=== PATIENT | female | born 1950 | race Caucasian/White ===

== ENCOUNTER 2021-03-27 09:08 | Day surgery (SDC) | payer MEDICARE ==
[2021-03-26 08:55] VITALS: BMI 26.3
[~2021-03-27 09:08] MED LIST: LACTATED RINGERS 1,000 ML IV SCH
[2021-03-27 09:56] VITALS: TEMP 97.4
[2021-03-27] MEDS ORDERED: PROPOFOL 10 MG/ML 20 ML VIAL IV ONE (10:44)
[2021-03-27] MEDS ORDERED: LIDOCAINE 1% INJ 10MG/ML (20 ML MDV) ONE (10:44)
--- NOTE | 2021-03-27 11:06 | P.PCN ---
Date of Procedure: 03/27/21 Procedure(s) Performed: BRIEF HISTORY: Patient is a 71-year-old pleasant white female scheduled for an elective colonoscopy as a part of surveillance of prior history of colon polyps. She was diagnosis large tubular villous adenoma in the right colon for which she underwent right hemicolectomy by Dr. Mai several years ago. A few years ago she did have a sigmoid perforation for which she underwent sigmoid colectomy. Her last colonoscopy was 5 years ago. PROCEDURE PERFORMED: Colonoscopy with snare polypectomy. PREOPERATIVE DIAGNOSIS: History of colon polyps. IV sedation per Anesthesia. PROCEDURE: After informed consent was obtained, the patient, was brought into the endoscopy unit. IV sedation was administered by Anesthesia under continuous monitoring. Digital rectal examination was normal. Initially the Olympus CF-160 flexible video colonoscope was then inserted in the rectum, gradually advanced into the right colon with ileocolic anastomosis was visualized and appeared normal. In the hepatic flexure there was a 1 cm polyp removed by snare polypectomy. In the sigmoid colon there was a 3 mm polyp removed by snare polypectomy. Rest of the, transverse colon, descending colon, sigmoid colon, and rectum appeared normal. Mild anastomosis was located at 20 cm from the anal was there appeared normal. Scattered left-sided diverticulosis seen. Retroflexion was performed in the rectum and no lesions were seen. The patient tolerated the procedure well. IMPRESSION: 1 cm hepatic flexure polyp status post polypectomy Normal ileocolic anastomosis in the right colon 3 mm sigmoid colon polyp status post polypectomy Scattered left sided diverticulosis . RECOMMENDATIONS: Findings of this examination were discussed with the patient as her family.. She was advised to follow with the biopsy results. If the biopsy results reveal an adenoma she can have a repeat colonoscopy in 5 years
[2021-03-27] MEDS ORDERED: IV FLUID CONTINUATION 450 ML IV ONE (11:09)
[2021-03-27 11:16] VITALS: PULSE 56
[2021-03-27 11:34] VITALS: BP 125/68; RESP 20
== END 2021-03-27 11:38 | disposition home or self-care (01) ==
LOC: ORWHC2ENDO 09:08
PROVIDERS: ATTEND Internal Medicine Gastroenterology
DX: Z12.11 Encounter for screening for malignant neoplasm of colon (principal); D12.3 Benign neoplasm of transverse colon; K57.30 Diverticulosis of large intestine without perforation or abscess without bleeding; E78.5 Hyperlipidemia, unspecified; Z86.010 Personal history of colon polyps; Z90.49 Acquired absence of other specified parts of digestive tract; Z79.899 Other long term (current) drug therapy; Z88.6 Allergy status to analgesic agent; Z88.8 Allergy status to other drugs, medicaments and biological substances
CPT/HCPCS: 88305; 45385; J2001; J2704

== ENCOUNTER → 2022-03-20 | Outpatient (CLI) | payer MEDICARE, OTHER ==
--- NOTE | 2022-03-21 09:46 | MR ---
EXAMINATION TYPE: MR brain wo con DATE OF EXAM: 03/20/2022 12:55 PM COMPARISON: CT brain 10/01/20162015 CLINICAL INDICATION:Female, 72 years old with history of I67.9 CEREBROVASCULAR DISEASE; TECHNIQUE: Multi planar, multi sequence imaging was performed through the brain including: T1, T2, In version recovery, Diffusion weighted imaging, and gradient echo imaging. No gadolinium was given. FINDINGS: The zepeda-white junctions, ventricular system, and cisterns appear unremarkable. Midline structures sh ow no abnormality. Diffusion-weighted imaging shows no evidence of restricted diffusion. The suscepti bility weighted images do not reveal any evidence for micro-hemorrhage. The bone marrow signal is within normal limits. The paranasal sinuses and globes are unremarkable. IMPRESSION: No evidence of intracranial mass or acute/subacute infarct.
== END | disposition home or self-care (01) ==
LOC: RADMRIMAIN 11:05
PROVIDERS: ATTEND Psychiatry & Neurology Neurology
DX: I67.9 Cerebrovascular disease, unspecified (principal)
CPT/HCPCS: 70551